=== PATIENT | female | born 1955 | race American Indian/Alaskan Native ===

== ENCOUNTER 2021-01-13 22:15 | Emergency (ER) | payer MEDICARE ==
--- NOTE | 2021-01-13 22:24 | Emergency Department Report ---
ED General Adult HPI - General Chief complaint: Altered Mental Status Stated complaint: i dont know why im here PUI?: No Time Seen by Provider: 01/13/21 22:21 Source: patient, EMS (Verbal report received from emergency medical services. EMS documentation not available at time of chart dictation ), RN notes reviewed Mode of arrival: Stretcher Limitations: Altered Mental Status - History of Present Illness Initial comments: The patient was evaluated in the emergency department for symptoms described in the history of present illness. He/she was evaluated in the context of the global COVID-19 pandemic, which necessitated consideration that the patient might be at risk for infection with the virus that causes COVID-19. In stitutional protocols and algorithms that pertain to the evaluation of patients at risk for COVID-19 are in a state of rapid change based on information released by regulatory bodies including the CDC and federal and state organizations. These policies and algorithms were followed during the patient's care in the emergency department. Please note that these policies, procedures and recommendations changed on a rapid basis. This is a 65-year-old female. She is not known to myself previously. She is brought to the hospital today by emergency medical services. The patient is not currently accompanied by friends or family at this time for collateral information, and therefore, entire to the history is obtained from EMS. EMS was contacted because the patient has been having fluctuations in mental status and "not acting right" as per verbal report from EMS, since 3:00 this morning. EMS reports that family reported a gradual decline in patient's functional mental status over the past few weeks, however, family felt that patient was dramatically different today when compared to baseline. EMS reports stable vital signs in the field, normal Accu-Chek, patient was ambulating with ass istance. The patient herself is alert only to name. She does not know the month, location, or year. She denies physical pain at this time. The patient tells me that she lives with her 70-year-old mother. The patient does not describe the qualitative nature of her symptoms, exacerbating factors, relieving factors or aggravating factors. -: This morning Consistency: other Improves with: other Worsens with: other Associated Symptoms: other - Related Data Allergies Allergy/AdvReac Type Severity Reaction Status Date / Time No Known Allergies Allergy Verified 01/14/21 00:27 ED Review of Systems ROS: Stated complaint: AMS Other details as noted in HPI Comment: Unobtainable due to pts medical conditions Neurological: confusion ED Physical Exam - General Limitations: Altered Mental Status General appearance: in no apparent distress, anxious, obese - Head Head exam: Present: atraumatic, normocephalic - Eye Eye exam: Present: normal appearance, PERRL, EOMI, other (Visual acuity intact to finger counting and color perception had a close distance). Absent: nystagmus - ENT ENT exam: Present: normal exam, normal orophraynx, mucous membranes moist, normal external ear exam - Neck Neck exam: Present: normal inspection, full ROM. Absent: tenderness, meningismus - Respiratory Respiratory exam: Present: normal lung sounds bilaterally. Absent: respiratory distress, rhonchi, stridor - Cardiovascular Cardiovascular Exam: Present: normal rhythm, tachycardia, normal heart sounds. Absent: bradycardia, irregular rhythm, systolic murmur, diastolic murmur, rubs, gallop - GI/Abdominal GI/Abdominal exam: Present: soft. Absent: distended, tenderness, guarding, r ebound, rigid, pulsatile mass - Extremities Exam Extremities exam: Present: normal inspection, full ROM, pedal edema (1-2+ edema in the bilateral lower extremities), other (2+ pulses noted in the bilateral upper and lower extremities. There is no palpable cord. negative Homans sign. Muscular compartments are soft. The pelvis is stable.). Absent: calf te nderness - Back Exam Back exam: Absent: tenderness, CVA tenderness (R), CVA tenderness (L), paraspinal tenderness, vertebral tenderness - Neurological Exam Neurological exam: Present: altered (The patient is alert only to name. The patient is awake, and speaking spontaneously. The patient follows commands.), other (No facial droop. Tongue midline. Extraocular movements intact bilaterally. Facial sensation intact to light touch in V1, V2, V3 distribution bilaterally. 5 and a 5 strength in 4 extremities. Sensation intact to light touch in 4 extremities.) - Psychiatric Psychiatric exam: Present: anxious, flat affect - Skin Skin exam: Present: warm, dry, intact, normal color. Absent: rash ED Course Vital Signs 01/13/21 01/13/21 01/13/21 22:42 23:40 23:46 Temperature 98.5 F Pulse Rate 114 H 107 H Respiratory 20 19 Rate Blood Pressure 179/92 153/95 O2 Sat by Pulse 94 92 Oximetry 01/14/21 01/14/21 01/14/21 00:00 00:15 00:38 Temperature Pulse Rate 108 H 103 H Respiratory 24 15 18 Rate Blood Pressure 155/94 152/76 O2 Sat by Pulse 97 95 98 Oximetry - Reevaluation(s) Reevaluation #1: 01/13/21 22:40 Differential diagnosis, including but not limited to: Toxic encephalopathy, metabolic encephalopathy, pneumonia, urinary tract infection, dementia, stroke Assessment and plan: 65-year-old female to the hospital today by EMS with a complaint of weakness and altered mental status. The patient is awake, protecting her airway, moving 4 extremities spontaneously. Last known well time is not explicitly known, as per EMS, they believe it was 3:00 AM, but currently, family/friend not available to corroborate. In any event, patient's presentation is not suggestive of acute ischemic stroke, and therefore TPA is not indicated. Examination not suggestive of large vessel occlusion. We will evaluate for global causes of altered sensorium, and obtain CT scan of the brain, x-ray of the chest, urinalysis, rectal temperature, EKG, Accu-Chek. Patient did endorse to me that she consumes tobacco, and alcohol, so she was given thiamine and a banana bag. We will reassess after initial data points, and anticipate admitting this patient to the medical service once her initial diagnostics have resulted. Reevaluation #2: 01/13/21 23:27 Patient found to have intraparenchymal hemorrhage. GCS 13-14 at this time. Patient protecting airway. Cardene drip ordered, Keppra ordered, head of bed to be elevated. Neurosurgery has recommended transfer for services not available at this facility. Please see my consultative notes as per their recommendations . We have reached out to the [facility] transfer center to arrange transfer for this patient. Reevaluation #3: 01/13/21 23:37 Have discussed the details of the patient's case with her son, Mr. Jean-Paul Calzada; [phone]. He has provided verbal informed consent over the phone for transfer for definitive care. We are waiting for callback from [facility], hopefully to arrange definitive placement. Reevaluation #4: 01/13/21 23:49 I have discussed the patient's history, physical, pertinent laboratory studies, imaging studies, with neurosurgeon, neurology/critical care at [facility], Lonnie Burger/ Dr Rosales respectively. They can accept the patient as a transfer, however, they will not have a bed available until tomorrow afternoon. We will continue to explore alternative transfer arrangements. A 6-hour noncontrast CT scan of the brain is recommended to assess for interval change, head of bed elevation is agreed with, maintenance of systolic blood pressure less than 160 mm hg, Cardene drip. We will reach out to [facility] to see if they can accommodate in the neurology critical care facilities. 01/13/21 23:53 Have discussed with [facility]. They tell me they have available beds, and that we can expect a call back from their design supervisor shortly. Reevaluation #5: 01/14/21 00:30 Dr Aiyana Brunson will be the medical pill packer who will accept the patient to [facility]. Dr. Americo Child will be the consulting neurosurgeon at their facility. Have discussed the patient's history, physical, presentation, pertinent laboratory studies and imaging studies with the aforementioned physicians. 01/14/21 00:52 Patient reassessed. She is in no acute distress. Blood pressure 145 at this time. Contacted patient's son. Updated him on plan of care. He has verbalized understanding. We will also discuss with [facility], and advised of the patient's acceptance at another facility. - Consultations Consultation #1: 01/13/21 23:20 Discussed history, physical, CT scan findings with our neurosurgeon on-call, Dr. Kramer. He has also personally evaluated this patient's CT scan. He advises elijah ramirez for this patient. He advises that the bleed is very close to the third ventricle, which puts this patient at risk for developing obstructive hydrocephalus. If that happens, this patient cannot be definitively managed at this hospital, as neurosurgery would not be able to surgically intervene on this, monitor the patient, and we do not have neurology critical care available for consultation ED Medical Decision Making - Lab Data Result diagrams: 01/13/21 22:35 01/13/21 22:35 Vital Signs 01/13/21 22:42 Temperature 98.5 F Pulse Rate 114 H Respiratory 20 Rate Blood Pressure 179/92 O2 Sat by Pulse 94 Oximetry Lab Results 01/13/21 01/13/21 01/13/21 Range/Units 22:35 22:35 22:35 WBC 8.8 (4.5-11.0) K/mm3 RBC 4.88 (3.65-5.03) M/mm3 Hgb 13.6 (10.1-14.3) gm/dl Hct 41.8 (30.3-42.9) % MCV 86 (79-97) fl MCH 28 (28-32) pg MCHC 33 (30-34) % RDW 14.6 (13.2-15.2) % Plt Count 216 (140-440) K/mm3 Lymph % (Auto) 14.7 (13.4-35.0) % Stephens % (Auto) 6.0 (0.0-7.3) % Eos % (Auto) 1.1 (0.0-4.3) % Baso % (Auto) 0.4 (0.0-1.8) % Lymph # (Auto) 1.3 (1.2-5.4) K/mm3 Stephens # (Auto) 0.5 (0.0-0.8) K/mm3 Eos # (Auto) 0.1 (0.0-0.4) K/mm3 Baso # (Auto) 0.0 (0.0-0.1) K/mm3 Seg Neutrophils % 77.8 H (40.0-70.0) % Seg Neutrophils # 6.8 (1.8-7.7) K/mm3 PT 13.8 (12.2-14.9) Sec. INR 1.08 (0.87-1.13) APTT 24.0 L (24.2-36.6) Sec. Acetaminophen 5.0 L (10.0-30.0) ug/mL - EKG Data -: EKG Interpreted by Tx EKG shows normal: sinus rhythm Rate: tachycardia - EKG Data When compared to previous EKG there are: previous EKG unavailable 01/14/21 00:52 EKG interpreted at 12: 46 a.m. Sinus rhythm, tachycardia, 1 1 1 bpm, normal axis, QTC prolonged, left ventricular hypertrophy, motion artifact. Not a STEMI. No prior for comparison. - Radiology Data Radiology results: pending, report reviewed, image reviewed [address] [place] [address] Cat Scan Report Signed Patient: GUSTAVO CALZADA MR#: [id number] : 1955 Acct:[id number] Age/Sex: 65 / F ADM Date: 01/13/21 Loc: ED Attending Dr: Ordering Physician: BRADY VICK MD Date of Service: 01/13/21 Procedure(s): CT head/brain wo con Accession Number(s): [id number] cc: BRADY VICK MD CT HEAD WITHOUT CONTRAST INDICATION / CLINICAL INFORMATION: Altered Mental Status. TECHNIQUE: All CT scans at this location are performed using CT dose reduction for ALARA by means of automated exposure control. COMPARISON: None available. FINDINGS: HEMORRHAGE: There is contiguous acute intraparenchymal hemorrhage involving the right anterior gangliocapsular region and thalamus. The hemorrhage involving the anterior limb of the internal capsule and basal ganglia measures approximately 1.3 cm and the hemorrhage in the thalamus measures approximately 2 cm. EXTRA-AXIAL SPACES: Normal in size and morphology for the patient's age. VENTRICULAR SYSTEM: Normal in size and morphology for the patient's age. CEREBRAL PARENCHYMA: There are extensive small vessel ischemic changes in the periventricular white matter bilaterally. No evidence of major vessel occlusion. MIDLINE SHIFT / HERNIATION: None. CEREBELLUM / BRAINSTEM: No significant abnormality. ORBITS: Normal as visualized. SOFT TISSUES: No significant abnor mality. SKULL: No significant abnormality. PARANASAL SINUSES / MASTOID AIR CELLS: Normal as visualized. ADDITIONAL FINDINGS: None. IMPRESSION: 1. Acute parenchymal hemorrhage involving the right thalamus and anterior gangliocapsular region. 2. No significant mass effect, evidence of intraventricular extension or hydrocephalus. CRITICAL RESULT Time of Discovery (SAP TREASURY CONSULTANT/CDT): 10:13 PM Time of Communication (SAP TREASURY CONSULTANT/CDT): 10:14 PM Licensed Practitioner Receiving Report: Dr. Vick Read-Back Performed: Not applicable. Signer Name: Nikolai Cottrell MD Signed: 01/13/2021 11:17 PM Workstation Name: [id number] Transcribed By: RT Dictated By: Nikolai Cottrell MD Electronically Authenticated By: Nikolai Cottrell MD Signed Date/Time: 01/13/212316 DD/ 10 [facility] [address] [place] [address] XRay Report Signed Patient: GUSTAVO CALZADA MR#: [id number] : 1955 Acct:[id number] Age/Sex: 65 / F ADM Date: 01/13/21 Loc: ED Attending Dr: Ordering Physician: BRADY VICK MD Date of Service: 01/13/21 Procedure(s): XR chest 1V ap Accession Number(s): [id number] cc: BRADY VICK MD Fluoro Time In Minutes: CHEST 1 VIEW 01/13/2021 10:54 PM INDICATION / CLINICAL INFORMATION: Altered Mental Status. COMPARISON: None available. FINDINGS: SUPPORT DEVICES: None. HEART / MEDIASTINUM: The heart size and pulmonary vasculature are normal. The aorta is mildly tortuous and ectatic without focal aneurysm. LUNGS / PLEURA: No significant pulmonary or pleural abnormality. No pneumothorax. ADDITIONAL FINDINGS: The left hemidiaphragm is slightly higher than the right. IMPRESSION: No acute findings. Signer Name: Nikolai Cottrell MD Signed: 01/13/2021 11:22 PM Workstation Name: [id number] Transcribed By: RT Dictated By: Nikolai Cottrell MD Electronically Authenticated By: Nikolai Cottrell MD Signed Date/Time: 01/13/212321 DD/ 20 Critical Care Time: Yes Critical care time in (mins) excluding proc time.: 65 Critical care attestation.: If time is entered above; I have spent that time in minutes in the direct care of this critically ill patient, excluding procedure time. ED Disposition Clinical Impression: Acute encephalopathy, Intracranial hemorrhage, Hypertensive emergency Disposition: [id number] [facility]OS[facility] IP Is pt being admited?: No Does the pt Need Aspirin: No Condition: Critical Instructions: Hypertension (ED) Referrals: MILA BRIDGES [Other] - 3-5 Days
[2021-01-13] MEDS ORDERED: THIAMINE 500 MG in SODIUM CHLORIDE 0.9% 50 ML IV ONE (22:38)
[2021-01-13] MEDS ORDERED: THIAMINE 100 MG, FOLIC ACID 1 MG, MULTIPLE VITAMIN INJ, ADULT 10 ML in SODIUM CHLORIDE ... IV ONE (22:39)
[2021-01-13 23:08] LABS: Basophils % (Auto) 0.4 % (0.0-1.8); Eosinophils # (Auto) 0.1 K/mm3 (0.0-0.4); Eosinophils % (Auto) 1.1 % (0.0-4.3); Hematocrit 41.8 % (30.3-42.9); Hemoglobin 13.6 gm/dl (10.1-14.3); Lymphocytes # (Auto) 1.3 K/mm3 (1.2-5.4); Lymphocytes % (Auto) 14.7 % (13.4-35.0); Mean Corpuscular HGB Conc 33 % (30-34); Mean Corpuscular Volume 86 fl (79-97); Monocytes # (Auto) 0.5 K/mm3 (0.0-0.8); Platelet Count 216 K/mm3 (140-440); Red Blood Count 4.88 M/mm3 (3.65-5.03); Red Cell Distribution Width 14.6 % (13.2-15.2)
[2021-01-13 23:15] LABS: INR 1.08 (0.87-1.13)
[2021-01-13] MEDS ORDERED: levETIRAcetam 1000 MG/NS 0.75% 1,000 MG/100 ML BAG IV ONE (23:16)
--- NOTE | 2021-01-13 23:22 | Cat Scan Report ---
CT HEAD WITHOUT CONTRAST INDICATION / CLINICAL INFORMATION: Altered Mental Status. TECHNIQUE: All CT scans at this location are performed using CT dose reduction for ALARA by means of automated exposure control. COMPARISON: None available. FINDINGS: HEMORRHAGE: There is contiguous acute intraparenchymal hemorrhage involving the right anterior gangli ocapsular region and thalamus. The hemorrhage involving the anterior limb of the internal capsule and basal ganglia measures approximately 1.3 cm and the hemorrhage in the thalamus measures approximatel y 2 cm. EXTRA-AXIAL SPACES: Normal in size and morphology for the patient's age. VENTRICULAR SYSTEM: Normal in size and morphology for the patient's age. CEREBRAL PARENCHYMA: There are extensive small vessel ischemic changes in the periventricular white m atter bilaterally. No evidence of major vessel occlusion. MIDLINE SHIFT / HERNIATION: None. CEREBELLUM / BRAINSTEM: No significant abnormality. ORBITS: Normal as visualized. SOFT TISSUES: No significant abnormality. SKULL: No significant abnormality. PARANASAL SINUSES / MASTOID AIR CELLS: Normal as visualized. ADDITIONAL FINDINGS: None. IMPRESSION: 1. Acute parenchymal hemorrhage involving the right thalamus and anterior gangliocapsular region. 2. No significant mass effect, evidence of intraventricular extension or hydrocephalus. CRITICAL RESULT Time of Discovery (UNDERLINER/CDT): 10:13 PM Time of Communication (UNDERLINER/CDT): 10:14 PM Licensed Practitioner Receiving Report: Dr. Vick Read-Back Performed: Not applicable. Signer Name: Nikolai Cottrell MD Signed: 01/13/2021 11:17 PM Workstation Name: [id number]
--- NOTE | 2021-01-13 23:26 | XRay Report ---
CHEST 1 VIEW 01/13/2021 10:54 PM INDICATION / CLINICAL INFORMATION: Altered Mental Status. COMPARISON: None available. FINDINGS: SUPPORT DEVICES: None. HEART / MEDIASTINUM: The heart size and pulmonary vasculature are normal. The aorta is mildly tortuou s and ectatic without focal aneurysm. LUNGS / PLEURA: No significant pulmonary or pleural abnormality. No pneumothorax. ADDITIONAL FINDINGS: The left hemidiaphragm is slightly higher than the right. IMPRESSION: No acute findings. Signer Name: Nikolai Cottrell MD Signed: 01/13/2021 11:22 PM Workstation Name: [id number]
[2021-01-13 23:33] LABS: Alanine Aminotransferase 14 units/L (7-56); Albumin 4.4 g/dL (3.9-5); BUN/Creatinine Ratio 25; Blood Urea Nitrogen 27 mg/dL (7-17); Calcium 9.9 mg/dL (8.4-10.2); Hemolysis Index 0
[2021-01-13] MEDS ORDERED: niCARdipine 50 MG in SODIUM CHLORIDE 0.9% 250ML 230 ML IV SCH (23:45)
[2021-01-14 01:39] VITALS: BP 133/115
--- NOTE | 2021-01-15 10:46 | Electrocardiograph Report ---
[facility] Test Date: 2021-01-14 Test Time: 00:46:28 Pat Name: GUSTAVO FOREMAN Department: Room: Gender: F Rn Oncology Research: : 1955 Requested By: BRADY ROBERTSON Order Number: [id number] Reading MD: Charley Montalvo Measurements Intervals Brooks Rate: 111 P: 35 NV: 139 QRS: 22 QRSD: 88 T: 177 QT: 331 QTc: 450 Interpretive Statements Sinus tachycardia Probable LVH with secondary repol abnrm No previous ECG available for comparison Electronically Signed On 01-15-2021 10:45:52 EDT by Charley Montalvo
== END 2021-01-14 02:13 | disposition short-term general hospital (02) ==
LOC: ED 22:15
DX: I62.9 Nontraumatic intracranial hemorrhage, unspecified (principal); G93.40 Encephalopathy, unspecified; I16.1 Hypertensive emergency; Z79.899 Other long term (current) drug therapy
CPT/HCPCS: 36415; 70450; 71045; 80053; 82140; 82550; 82962; 83735; 83880; 84443; 84484; 85025; 85610; 85730; 86850; 86900; 86901; 87040; 93005; 96365; 96366; 96368; 99291; J1953; J7050; 80320; G0480; J3411; J7030

== ENCOUNTER 2021-06-25 15:12 | Emergency (ER) | payer MEDICARE ==
--- NOTE | 2021-06-25 16:54 | Emergency Department Report ---
<RONY TAYLOR - Last Filed: 06/25/21 19:43> ED Extremity Problem HPI - General Chief complaint: Pain General Stated complaint: SENT BY [facility]/CLOTS IN LEGS Time Seen by Provider: 06/25/21 16:33 Source: patient Mode of arrival: Ambulatory Limitations: No Limitations - History of Present Illness Initial comments: 65-year-old female with a past medical history of intracranial hemorrhage which required transfer from here in December as well as hypertension presents to the hospital with lower extremity edema. She wants form states that patient was sent by [facility] for blood clots. Patient does not come with any paperwork regarding her diagnosis. Patient has significant memory deficit and is oriented to self but not to age, year, or place. She is unable to tell me the details as to why she is here today. She is noted to have lower extremity edema which she states has been there for about 1 week and she was recently in the hospital for the same. She denies any discomfort including chest pain or shortness of breath Peng Calzada (son) [phone] - Related Data Previous Rx's Medication Instructions Recorded Last Taken Type Apixaban [Eliquis starter pack] 5 mg PO BID #60 tab.ds.pk 06/25/21 Unknown Rx Allergies Allergy/AdvReac Type Severity Reaction Status Date / Time No Known Allergies Allergy Verified 01/14/21 00:27 ED Past Medical Hx - Past Medical History Previous Medical History?: Yes Hx Hypertension: Yes - Surgical History Past Surgical History?: No - Social History Smoking Status: Current Every Day Smoker Substance Use Type: None - Medications Home Medications: Home Medications Medication Instructions Recorded Confirmed Last Taken Type Apixaban [Eliquis starter pack] 5 mg PO BID #60 tab.ds.pk 06/25/21 Unknown Rx ED Physical Exam - General Limitations: No Limitations - Other Other exam information: General: No acute distress Head: Atraumatic Eyes: normal appearance ENT: Moist mucous membranes Neck: Normal appearance, no midline tenderness Chest: Clear to auscultation bilaterally CV: Regular rate and rhythm Abdomen: Soft, normal bowel sounds, nontender, nondistended, no rebound or guarding Back: Normal inspection Extremity: Significant bilateral lower extremity pitting edema, no warmth or erythema. Neuro: Alert O to self only (not to age, year, or place), no facial asymmetry, speech clear, no gross motor sensory deficit Psych: Appropriate behavior Skin: No rash ED Course - Reevaluation(s) Reevaluation #1: 06/25/21 16:52 Patient has significant memory problems and is unable to tell me why she is here today and why she was sent. Her reached out to her son at [phone] and he was also informed [facility] at the same time. I spoke to [facility] burner machine operator who states that Dr. Yeyo Simon sent her to the ER to the ER and family was supposed to go to [facility]. Dr. Simon informed that hospital of patient's diagnosis and to expect to arrival. She will have Dr. Yeyo Simon called the ED to speak to me. Reevaluation #2: 06/25/21 19:09 Patient with acute right leg DVT requiring anticoagulation. At time of signout VQ is pending to rule out pulmonary embolism. If patient only has a DVT then she can be discharged on anticoagulation if her CT head is unremarkable. Case discussed with vascular surgeon as well as neurosurgeon. If patient does not have any acute CT findings she can be anticoagulated. Case d/w to Dr Arnold Hernandez - Consultations Consultation #1: 06/25/21 16:[address] Yeyo Simon directly to discuss case. Patient apparently was worked up for shortness of breath and lower extremity swelling. Today she had a Doppler performed in office that was positive for bilateral DVT. Expressed concern of possible pulmonary embolism due to complaint of mild shortness of breath. HE Sent her to the hospital for evaluation. Patient has been a patient of [facility] x1 month 06/25/21 19:00 Case was discussed with Dr. Gonzalez with vascular regarding anticoagulation in a patient with a history of intracranial hemorrhage. Defers to neurology to determine if anticoagulation is safe. Patient just has a DVT in this location patient cannot be anticoagulated as an outpatient does not require admission 06/25/21 19:[address] Alex Kramer neurosurgeon regarding need for anticoagulation for acute DVT. He recommends repeat CT head, if negative, patient can be anticoagulated 06/25/21 19:14 Case discussed with neurologist Layton Linares who states that based on previous CT report it does sound like patient had a hypertensive hemorrhage. If her CT head today is normal then patient may be anticoagulated. Recommend blood pressure control with systolic less than 150 while on anticoagulation ED Medical Decision Making - Lab Data Result diagrams: 06/25/21 17:10 06/25/21 17:10 Lab Results 06/25/21 06/25/21 06/25/21 Range/Units 17:10 17:10 17:10 WBC 8.8 (4.5-11.0) K/mm3 RBC 4.67 (3.65-5.03) M/mm3 Hgb 13.1 (10.1-14.3) gm/dl Hct 39.6 (30.3-42.9) % MCV 85 (79-97) fl MCH 28 (28-32) pg MCHC 33 (30-34) % RDW 15.3 H (13.2-15.2) % Plt Count 282 (140-440) K/mm3 Lymph % (Auto) 14.2 (13.4-35.0) % [place] % (Auto) 5.6 (0.0-7.3) % Eos % (Auto) 1.6 (0.0-4.3) % Baso % (Auto) 0.5 (0.0-1.8) % Lymph # (Auto) 1.2 (1.2-5.4) K/mm3 [place] # (Auto) 0.5 (0.0-0.8) K/mm3 Eos # (Auto) 0.1 (0.0-0.4) K/mm3 Baso # (Auto) 0.0 (0.0-0.1) K/mm3 Seg Neutrophils % 78.1 H (40.0-70.0) % Seg Neutrophils # 6.9 (1.8-7.7) K/mm3 PT 13.1 (12.2-14.9) Sec. INR 0.94 (0.87-1.13) APTT 25.4 (24.2-36.6) Sec. Sodium (137-145) mmol/L Potassium (3.6-5.0) mmol/L Chloride (98-107) mmol/L Carbon Dioxide (22-30) mmol/L Anion Gap mmol/L BUN (7-17) mg/dL Creatinine (0.6-1.2) mg/dL Estimated GFR ml/min BUN/Creatinine Ratio % Glucose (65-100) mg/dL Calcium (8.4-10.2) mg/dL Total Bilirubin (0.1-1.2) mg/dL AST (5-40) units/L ALT (7-56) units/L Alkaline Phosphatase (35-129) units/L NT-Pro-B Natriuret Pep 73.56 (0-900) pg/mL Total Protein (6.3-8.2) g/dL Albumin (3.9-5) g/dL Albumin/Globulin Ratio % 06/25/ Range/Units 17:10 WBC (4.5-11.0) K/mm3 RBC (3.65-5.03) M/mm3 Hgb (10.1-14.3) gm/dl Hct (30.3-42.9) % MCV (79-97) fl MCH (28-32) pg MCHC (30-34) % RDW (13.2-15.2) % Plt Count (140-440) K/mm3 Lymph % (Auto) (13.4-35.0) % [place] % (Auto) (0.0-7.3) % Eos % (Auto) (0.0-4.3) % Baso % (Auto) (0.0-1.8) % Lymph # (Auto) (1.2-5.4) K/mm3 [place] # (Auto) (0.0-0.8) K/mm3 Eos # (Auto) (0.0-0.4) K/mm3 Baso # (Auto) (0.0-0.1) K/mm3 Seg Neutrophils % (40.0-70.0) % Seg Neutrophils # (1.8-7.7) K/mm3 PT (12.2-14.9) Sec. INR (0.87-1.13) APTT (24.2-36.6) Sec. Sodium 142 (137-145) mmol/L Potassium 3.7 (3.6-5.0) mmol/L Chloride 100.8 (98-107) mmol/L Carbon Dioxide 28 (22-30) mmol/L Anion Gap 17 mmol/L BUN 13 (7-17) mg/dL Creatinine 0.9 (0.6-1.2) mg/dL Estimated GFR > 60 ml/min BUN/Creatinine Ratio 14 % Glucose 119 H (65-100) mg/dL Calcium 10.7 H (8.4-10.2) mg/dL Total Bilirubin 0.20 (0.1-1.2) mg/dL AST 17 (5-40) units/L ALT 15 (7-56) units/L Alkaline Phosphatase 126 (35-129) units/L NT-Pro-B Natriuret Pep (0-900) pg/mL Total Protein 7.6 (6.3-8.2) g/dL Albumin 4.2 (3.9-5) g/dL Albumin/Globulin Ratio 1.2 % - EKG Data -: EKG Interpreted by [place] EKG shows normal: sinus rhythm, intervals (qtc 402), QRS complexes (qrsd 92), ST-T waves (no stemi) Rate: normal - Radiology Data Radiology results: report reviewed DUPLEX DOPPLER LOWER EXTREMITY VEINS, BILATERAL INDICATION: B/L LEG SWELLING. TECHNIQUE: Duplex doppler imaging was performed through the veins of both lower extremities using venous compression and other maneuvers. COMPARISON: No relevant prior imaging study available. FINDINGS: Right Common femoral vein: Negative. Right Superficial femoral vein: Negative. Right Popliteal vein: Occlusive thrombus. Right Calf veins: Occlusive thrombus. Left Common femoral vein: Negative. Left Superficial femoral vein: Negative. Left Popliteal vein: Negative. Left Calf veins: Negative. Additional findings: None.. IMPRESSION: 1. Occlusive thrombus in the right popliteal and calf veins. GAYATRI Prescott was informed at 1755 hours. CHEST 1 VIEW 06/25/2021 4:05 PM INDICATION / CLINICAL INFORMATION: LEG EDEMA. COMPARISON: 01/13/2021 FINDINGS: SUPPORT DEVICES: None. HEART / MEDIASTINUM: No significant abnormality. LUNGS / PLEURA: No significant pulmonary or pleural abnormality. No pneumothorax. ADDITIONAL FINDINGS: No significant additional findings. IMPRESSION: 1. No acute findings. - Medical Decision Making 65-year-old female sent to the hospital for suspected bilateral DVT. ED work-up reveals that patient has an acute popliteal and calf DVT of the right extremity. Patient has a history of intracranial hemorrhage in December. After consultation with vascular, neurology, and neurosurgery patient will be a candidate for outpatient anticoagulant if her CT head is negative. Goal systolic blood pressure below 150 to prevent recurrent hypertensive hemorrhage. At time of disposition CT head and V/Q exam pending. If V/Q is positive for pulmonary embolism patient will need admission to the hospital for further treatment. Case signed out to Dr. Arnold Hernandez to follow-up imaging results and dispo V/Q ordered because unable to obtain appropriate line to receive CT angiogram Critical Care Time: No ED Disposition Clinical Impression: Acute DVT (deep venous thrombosis) Disposition: HOME / SELF CARE / HOMELESS Condition: Stable Instructions: Bleeding Precautions When on Anticoagulant Therapy, Adult, Deep Vein Thrombosis Prescriptions: Apixaban [Eliquis starter pack] 5 mg PO BID #60 tab.ds.pk <ARNOLD HERNANDEZ - Last Filed: 06/25/21 23:55> ED Review of Systems ROS: Stated complaint: SENT BY [facility]/CLOTS IN LEGS Other details as noted in HPI ED Course Vital Signs 06/25/21 15:24 Temperature 98.0 F Pulse Rate 87 Respiratory 18 Rate Blood Pressure 121/78 O2 Sat by Pulse 97 Oximetry ED Medical Decision Making - Lab Data Result diagrams: 06/25/21 17:10 06/25/21 17:10 - Radiology Data VQ scan Low Probability for PE Ordering Physician: RONY TAYLOR MD Date of Service: 06/25/21 Procedure(s): CT head/brain wo con Accession Number(s): [id number] cc: RONY TAYLOR MD NONENHANCED CT SCAN OF THE HEAD: INDICATION / CLINICAL INFORMATION: 65 years Female; hx of intracranial hemorrhage, needs anticoagulati. TECHNIQUE: Routine CT head without contrast. All CT scans at this location are performed using CT dose reduction for ALARA by means of automated exposure control. COMPARISON: CT scan of the head from 01/13/2021 FINDINGS: BRAIN / INTRACRANIAL CONTENTS: Previously seen hemorrhage in the right basal ganglia has resolved completely. No chronic hemorrhage or hemorrhagic lesion; focal areas of subtle increased CT attenuation in both parietal lobes (image #20 in the axial plane). Focal linear increased attenuation in the right parietal lobe appears to be along sulcus. This is not hemorrhage. Focal area of increased CT attenuation in the left parieto-occipital border zone could not be confirmed in the sagittal and coronal planes. From these images, these 2 areas do not appear to be intracerebral hemorrhages. MRI scan would be confirmatory. No mass effect, midline shift, hydrocephalus, or acute, large territorial infarct. White matter low-attenuation areas in both cerebral hemispheres due to chronic small vessel disease. CRANIOCERVICAL JUNCTION: No significant abnormality. ORBITS: No significant abnormality of visualized orbits. SINUSES / MASTOIDS: No significant abnormality of the visualized paranasal sinuses or mastoid air cells. ADDITIONAL FINDINGS: None. IMPRESSION: Previously seen right basal ganglia hemorrhage has resolved completely Questionable areas of increased CT attenuation in both parietal lobe; these do not appear to be intracerebral hemorrhages; MRI scan would be confirmatory White matter lesions due to chronic small vessel disease in both cerebral hemispheres; unchanged Signer Name: Doris Godwin MD Signed: 06/25/2021 8:45 PM Workstation Name: [email or web address] - Medical Decision Making Patient has no intracranial hemorrhage. Blood pressure appears within normal limits. We will treat the patient with a initial dose of Lovenox for her DVT and patient can start Eliquis tomorrow. I did give her a free 30-day trial offer cart. Patient stable for discharge. Critical care attestation.: If time is entered above; I have spent that time in minutes in the direct care of this critically ill patient, excluding procedure time. ED Disposition Is pt being admited?: No Does the pt Need Aspirin: No Time of Disposition: 23:54
--- NOTE | 2021-06-25 17:12 | XRay Report ---
CHEST 1 VIEW 06/25/2021 4:05 PM INDICATION / CLINICAL INFORMATION: LEG EDEMA. COMPARISON: 01/13/2021 FINDINGS: SUPPORT DEVICES: None. HEART / MEDIASTINUM: No significant abnormality. LUNGS / PLEURA: No significant pulmonary or pleural abnormality. No pneumothorax. ADDITIONAL FINDINGS: No significant additional findings. IMPRESSION: 1. No acute findings. Signer Name: Cas Barajas MD Signed: 06/25/2021 5:07 PM Workstation Name: [id number]
[2021-06-25 17:53] LABS: Alanine Aminotransferase 15 units/L (7-56); Albumin 4.2 g/dL (3.9-5); BUN/Creatinine Ratio 14; Blood Urea Nitrogen 13 mg/dL (7-17); Calcium 10.7 mg/dL (8.4-10.2); Hemolysis Index 34
[2021-06-25 17:55] LABS: Basophils % (Auto) 0.5 % (0.0-1.8); Eosinophils # (Auto) 0.1 K/mm3 (0.0-0.4); Eosinophils % (Auto) 1.6 % (0.0-4.3); Hematocrit 39.6 % (30.3-42.9); Hemoglobin 13.1 gm/dl (10.1-14.3); Lymphocytes # (Auto) 1.2 K/mm3 (1.2-5.4); Lymphocytes % (Auto) 14.2 % (13.4-35.0); Mean Corpuscular HGB Conc 33 % (30-34); Mean Corpuscular Volume 85 fl (79-97); Monocytes # (Auto) 0.5 K/mm3 (0.0-0.8); Monocytes % (Auto) 5.6 % (0.0-7.3); Platelet Count 282 K/mm3 (140-440); Red Blood Count 4.67 M/mm3 (3.65-5.03); Red Cell Distribution Width 15.3 % (13.2-15.2)
[2021-06-25 18:04] LABS: INR 0.94 (0.87-1.13)
[2021-06-25 18:05] LABS: Partial Thromboplastin Time 25.4 Sec. (24.2-36.6)
--- NOTE | 2021-06-25 18:18 | Vascular Lab Report ---
DUPLEX DOPPLER LOWER EXTREMITY VEINS, BILATERAL INDICATION: B/L LEG SWELLING. TECHNIQUE: Duplex doppler imaging was performed through the veins of both lower extremities using venous natty johana and other maneuvers. COMPARISON: No relevant prior imaging study available. FINDINGS: Right Common femoral vein: Negative. Right Superficial femoral vein: Negative. Right Popliteal vein: Occlusive thrombus. Right Calf veins: Occlusive thrombus. Left Common femoral vein: Negative. Left Superficial femoral vein: Negative. Left Popliteal vein: Negative. Left Calf veins: Negative. Additional findings: None.. IMPRESSION: 1. Occlusive thrombus in the right popliteal and calf veins. GAYATRI Prescott was informed at 1755 hours. Signer Name: Wally Barrera MD Signed: 06/25/2021 6:14 PM Workstation Name: [id number]
--- NOTE | 2021-06-25 19:03 | Event Note ---
Date: 06/25/21 65 year old female with intracranial hemorrhage 01/13/2021 who presents with RLE DVT. Vascular consulted about recommendations about anticoagulation. Although popliteal vein thrombus can be treated in the outpatient setting, the ICH makes this complicated. Recommend CT brain and neurology consult to determine how they would perfer to proceed. Unclear if patient is a candidate for anticoagulation. May need IVC filter.
--- NOTE | 2021-06-25 20:17 | Nuclear Medicine Report ---
Perfusion Scan HISTORY: sob, dvt. TECHNIQUE: Patient was given 5.1 mCi of technetium MAA. COMPARISON: Chest x-ray from today FINDINGS: Normal symmetric perfusion throughout both lungs. No photopenic defect. IMPRESSION: Unremarkable exam. Signer Name: Wally Barrera MD Signed: 06/25/2021 8:13 PM Workstation Name: [id number]
--- NOTE | 2021-06-25 20:49 | Cat Scan Report ---
NONENHANCED CT SCAN OF THE HEAD: INDICATION / CLINICAL INFORMATION: 65 years Female; hx of intracranial hemorrhage, needs anticoagulati. TECHNIQUE: Routine CT head without contrast. All CT scans at this location are performed using CT dos e reduction for ALARA by means of automated exposure control. COMPARISON: CT scan of the head from 01/13/2021 FINDINGS: BRAIN / INTRACRANIAL CONTENTS: Previously seen hemorrhage in the right basal ganglia has resolved com pletely. No chronic hemorrhage or hemorrhagic lesion; focal areas of subtle increased CT attenuation in both parietal lobes (image #20 in the axial plane). Focal linear increased attenuation in the righ t parietal lobe appears to be along sulcus. This is not hemorrhage. Focal area of increased CT attenu ation in the left parieto-occipital border zone could not be confirmed in the sagittal and coronal pl anes. From these images, these 2 areas do not appear to be intracerebral hemorrhages. MRI scan would be confirmatory. No mass effect, midline shift, hydrocephalus, or acute, large territorial infarct. White matter low-attenuation areas in both cerebral hemispheres due to chronic small vessel disease. CRANIOCERVICAL JUNCTION: No significant abnormality. ORBITS: No significant abnormality of visualized orbits. SINUSES / MASTOIDS: No significant abnormality of the visualized paranasal sinuses or mastoid air paco ls. ADDITIONAL FINDINGS: None. IMPRESSION: Previously seen right basal ganglia hemorrhage has resolved completely Questionable areas of increased CT attenuation in both parietal lobe; these do not appear to be intra cerebral hemorrhages; MRI scan would be confirmatory White matter lesions due to chronic small vessel disease in both cerebral hemispheres; unchanged Signer Name: Doris Godwin MD Signed: 06/25/2021 8:45 PM Workstation Name: [email or web address]![email or web address]
[2021-06-25] MEDS ORDERED: ENOXAPARIN 100 MG/1 ML INJ SUB-Q ONE (23:43)
[2021-06-26 01:00] VITALS: BP 142/94
--- NOTE | 2021-06-26 08:34 | Electrocardiograph Report ---
[facility] Test Date: 2021-06-25 Test Time: 15:34:12 Pat Name: GUSTAVO FOREMAN Department: Room: Gender: F Network Account Manager: SKIP : [id number] Requested By: RONY TAYLOR Order Number: [id number] Reading MD: Rivera Ugalde Measurements Intervals [place] Rate: 92 P: 51 NV: 143 QRS: 44 QRSD: 92 T: 207 QT: 325 QTc: 402 Interpretive Statements Sinus rhythm Nonspecific T abnormalities, lateral leads Compared to ECG 01/14/2021 00:46:28 T-wave abnormality now present Sinus tachycardia no longer present Electronically Signed On 06-26-2021 8:34:33 EDT by Rivera Ugalde
== END 2021-06-26 01:11 | disposition home or self-care (01) ==
LOC: ED 15:12
DX: I82.403 Acute embolism and thrombosis of unspecified deep veins of lower extremity, bilateral (principal); R06.02 Shortness of breath; I10 Essential (primary) hypertension; F17.200 Nicotine dependence, unspecified, uncomplicated
CPT/HCPCS: 36415; 70450; 71045; 78580; 80053; 83880; 85025; 85610; 85730; 93005; 93970; 96372; 99284; A9540; J1650

== ENCOUNTER 2022-04-03 09:34 | Emergency (ER) | payer MEDICARE ==
--- NOTE | 2022-04-03 10:00 | Emergency Department Report ---
ED CPR HPI - General Chief Complaint: Cardiac Arrest/CPR Stated Complaint: CARDIAC ARREST Time Seen by Provider: 04/03/22 09:34 Source: family, EMS, old records reviewed Mode of arrival: Stretcher Limitations: Other - History of Present Illness Initial Comments: 66-year-old female the past medical history of hemorrhagic CVA, DVT, hypertension presents to the hospital cardiopulmonary arrest. EMS received call at 8:35 AM and upon arrival at 8:45 AM patient was noted to have agonal respirations. Family states that patient complained of feeling tired, had difficulty breathing, then return to normal then symptoms returned again and thus when EMS was contacted. CPR was initiated by first responders. IO was placed on left lower extremity and Grady airway placed. Initial rhythm was asystole. Patient received a total of epinephrine x5, sodium bicarb x1, and did have 1 episode of V. fib treated with 1 shock then deterioration back to asystole. Glucose 119. Resuscitation efforts continued upon arrival at 9:24 AM. - Related Data Previous Rx's Medication Instructions Recorded Last Taken Type Apixaban [Eliquis starter pack] 5 mg PO BID #60 tab.ds.pk 06/25/21 Unknown Rx Allergies Allergy/AdvReac Type Severity Reaction Status Date / Time No Known Allergies Allergy Verified 01/14/21 00:27 ED Review of Systems ROS: Stated complaint: CARDIAC ARREST Other details as noted in HPI ED Past Medical Hx - Past Medical History Previous Medical History?: Yes Hx Hypertension: Yes Hx CVA: Yes - Social History Smoking Status: Current Every Day Smoker Substance Use Type: None - Medications Home Medications: Home Medications Medication Instructions Recorded Confirmed Last Taken Type Apixaban [Eliquis starter pack] 5 mg PO BID #60 tab.ds.pk 06/25/21 Unknown Rx ED Physical Exam - General Limitations: Other - Other Other exam information: General: Unresponsive Head: Atraumatic Eyes: Fixed and dilated pupils ENT: Orally intubated Grady airway Neck: Normal appearance, no midline tenderness Chest: Apneic, breath sounds bilateral CV: Pulseless Abdomen: Soft, nondistended Back: Normal inspection Extremity: No spontaneous movement Neuro: GCS equals 3 Psych: unResponse Skin: Warm to touch ED Course - Reevaluation(s) Reevaluation #1: 04/03/22 Resuscitation efforts continued upon arrival with chest compressions. Rhythm of asystole. Treated with epi x1 and sodium bicarb x1. Despite resuscitation efforts patient remained in asystole. Time of 9:30 AM ED Medical Decision Making - Medical Decision Making 66-year-old female presents with cardiopulmonary arrest with continued asystole despite extensive resuscitation efforts prior to arrival. Patient was treated with additional dose of epinephrine, sodium bicarb, and chest compressions and remained in asystole. Further resuscitation efforts toward to be futile given signs of fixed and dilated pupils and prolonged asystole. Time of 9:30 AM Patient's family members including daughter and grandchild informed of patient's Critical Care Time: No Critical care attestation.: If time is entered above; I have spent that time in minutes in the direct care of this critically ill patient, excluding procedure time. ED Disposition Clinical Impression: Cardiopulmonary arrest Disposition: 20 Is pt being admited?: No Condition: Stable Time of Disposition: 10:00
== END 2022-04-04 17:11 ==
LOC: ED 09:34
DX: I46.9 Cardiac arrest, cause unspecified (principal); I10 Essential (primary) hypertension; Z86.73 Personal history of transient ischemic attack (TIA), and cerebral infarction without residual deficits; F17.290 Nicotine dependence, other tobacco product, uncomplicated
CPT/HCPCS: 92950; 99285